=== PATIENT | female | born 1935 | race Caucasian/White ===

== ENCOUNTER 2018-03-01 18:56 | Inpatient (IN) | payer OTHER ==
[~2018-03-01] VITALS: Ht 165.1 cm; Wt 77.0 kg
[~2018-03-01 18:56] MED LIST: ASPIRIN81 M1 PO; CENTRUM SILVER1 EAC3 PO; FLAX OIL1000 MG PO; LEXAPRO10 MG PO; NORVASC5 MG PO; PROTONIX40 MG PO; ZOCOR40 MG PO
[2018-03-01 19:42] LABS: HEMATOCRIT 38.7 % (36.0-46.0); HEMOGLOBIN 13.4 G/DL (11.9-15.5); MCHC 34.6 G/DL (30.0-36.0); MCV 86.8 FL (83-99); PLATELET COUNT 287 K/uL (156-360); RBC DIS.WIDTH-SD 44.7 % (39-53); RED BLOOD COUNT 4.46 M/uL (3.80-5.20); WHITE BLOOD COUNT 8.5 K/uL (4.1-10.2)
[2018-03-01 19:52] LABS: CHLORIDE 97 mEq/L (99-109); POTASSIUM 4.1 mEq/L (3.7-5.4); SODIUM 134 mEq/L (136-147)
[2018-03-01 19:54] LABS: GLUCOSE 114 mg/dL (70-99)
[2018-03-01 19:58] LABS: CREATININE 0.9 mg/dL (0.6-1.3); GFR ESTIMATE (CALCULATED) > 59 mL/min/; UREA NITROGEN (BUN) 13 mg/dL (9-23)
[2018-03-01 23:42] LABS: CSF PROTEIN 49 mg/dL (15-45); GLUCOSE, CSF 63 mg/dL (40-80)
[2018-03-02 00:26] LABS: APPEARANCE CLEAR/COLORLESS; CSF TUBE NUMBER TUBE #1
[2018-03-02 00:27] LABS: RED CELL COUNT 31 /MM^3 (0-1); WHITE CELL COUNT 7 /MM^3 (0-5)
[2018-03-02 00:31] LABS: CSF EOSINOPHILS 0 % (0-25); MONONUCLEAR WBC'S 96 % (50-90); POLYNUCLEAR WBC'S 4 % (0-3)
[2018-03-02 02:04] LABS: APPEARANCE (RECHECK) CLEAR/COLORLESS; CSF TUBE NUMBER (RECHECK) TUBE #4; RED CELL COUNT (RECHECK) 1 /MM^3 (0-1)
[2018-03-02 02:19] LABS: MAGNESIUM 2.4 mg/dL (1.3-2.7)
[2018-03-02 03:10] VITALS: BP 165/77
[2018-03-02 06:43] VITALS: BP 159/68
[2018-03-02 11:15] VITALS: BP 159/70
[2018-03-02] MEDS ORDERED: ARTIFICIAL TEAR1510 BOTH EYES (13:39)
[2018-03-02] MEDS ORDERED: BIOFLEX TABLET1 EACH PO (13:39)
[2018-03-02 14:58] VITALS: BP 184/79
[2018-03-03] VITALS (8 sets, daily range): BP systolic 126–165; BP diastolic 69–80
[2018-03-04 03:54] VITALS: BP 126/88
[2018-03-04 07:20] VITALS: BP 129/68
== END 2018-03-04 11:24 | disposition home or self-care (01) | DRG 76 ==
LOC: EME 18:56 → EDOF 03-02 01:49 → ENRESERV 03-02 01:49 → 5EAST 03-02 01:49 → ENRESERV 03-02 02:04 → 5EAST 03-02 02:52
PROVIDERS: Emergency Medicine
PROC: 009U3ZX Drainage of Spinal Canal, Percutaneous Approach, Diagnostic (ICD-10-PCS; principal; 2018-03-01)
DX: A87.9 Viral meningitis, unspecified (principal); E11.9 Type 2 diabetes mellitus without complications; E78.5 Hyperlipidemia, unspecified; H91.90 Unspecified hearing loss, unspecified ear; I10 Essential (primary) hypertension; Z79.899 Other long term (current) drug therapy; E11.51 Type 2 diabetes mellitus with diabetic peripheral angiopathy without gangrene; Z88.0 Allergy status to penicillin; Z88.2 Allergy status to sulfonamides; R51 Headache
CPT/HCPCS: 70450; 71046; 80048; 81003; 82945; 83605; 83735; 84157; 85027; 87040; 87070; 87205; 89051; 93005; 99281; 99285; J0360; J0696; J0780; J1200; J1885; J2765; J3010; J3370; J7030

== ENCOUNTER 2018-03-13 10:50 | Emergency (ER) | payer OTHER ==
[~2018-03-13] VITALS: Ht 165.1 cm; Wt 73.6 kg
[~2018-03-13 10:50] MED LIST changes: +ARTIFICIAL TEAR1510 BOTH EYES; +BIOFLEX TABLET1 EACH PO
[2018-03-13 11:49] LABS: HEMATOCRIT 39.7 % (36.0-46.0); HEMOGLOBIN 13.6 G/DL (11.9-15.5); MCH 29.2 PG (29.0-34.0); MCHC 34.3 G/DL (30.0-36.0); MCV 85.4 FL (83-99); RBC DIS.WIDTH-CV 13.6 % (11.8-14.6); RBC DIS.WIDTH-SD 42.3 % (39-53); RED BLOOD COUNT 4.65 M/uL (3.80-5.20); WHITE BLOOD COUNT 8.2 K/uL (4.1-10.2)
[2018-03-13 11:50] LABS: PLATELET COUNT 439 K/uL (156-360)
[2018-03-13 12:11] LABS: TROP-I INTERPRETATION NEGATIVE; TROPONIN-I < 0.01 ng/mL (0.0-0.30)
[2018-03-13 12:31] LABS: THYROTROPIN (TSH) 1.5 MIU/L (0.4-5.5)
[2018-03-13 12:36] LABS: INTER. NORMALIZED RATIO 1.2
[2018-03-13 12:39] LABS: PTT 28.3 SEC (25-37)
[2018-03-13] MEDS ORDERED: PROAIR RESPICL90 MCG IH (12:51)
[2018-03-13 13:00] LABS: ALBUMIN 4.3 G/DL (3.2-4.8); ALKALINE PHOSPHATASE 67 IU/L (3-129); ALT (GPT) 29 IU/L (3-49); AST (GOT) 20 IU/L (2-34); CHLORIDE 97 MEQ/L (99-109); CREATININE 0.8 MG/DL (0.6-1.3); GFR ESTIMATE (CALCULATED) > 59 mL/min/; GLUCOSE 109 mg/dL (70-99); SODIUM 134 MEQ/L (136-147); TOTAL BILIRUBIN 1.4 MG/DL (0.0-1.0); TOTAL PROTEIN 7.1 G/DL (6.4-8.3); UREA NITROGEN (BUN) 13 mg/dL (9-23)
[2018-03-13 13:57] VITALS: BP 143/82
== END 2018-03-13 14:12 | disposition home or self-care (01) ==
LOC: EME 10:50
PROVIDERS: Emergency Medicine
DX: R06.02 Shortness of breath (principal); F41.9 Anxiety disorder, unspecified; I10 Essential (primary) hypertension; E11.9 Type 2 diabetes mellitus without complications; K21.9 Gastro-esophageal reflux disease without esophagitis; Z79.82 Long term (current) use of aspirin
CPT/HCPCS: 71045; 80053; 83880; 84443; 84484; 85027; 85379; 85610; 85730; 93005; 94640; 99281; 99285